=== PATIENT | female | born 1995 | race Caucasian/White ===

== ENCOUNTER 2017-09-16 11:16 | Observation (INO) ==
[2017-09-16 12:11] LABS: Amphetamine Screen,Urine Negative ng/mL (Cutoff=1000); Barbiturate Screen,Urine Negative ng/mL (Cutoff=200); Benzodiazepines Screen,Urine Negative ng/mL (Cutoff=200); Cannabinoid Screen,Urine Negative ng/mL (Cutoff = 50); Cocaine Screen,Urine Negative ng/mL (Cutoff= 300); Opiate Screen,Urine Negative ng/mL (Cutoff=300); Phencyclidine Screen,Urine Negative ng/mL (Cutoff=25)
[2017-09-16 12:27] LABS: Alanine Aminotransferase 11 Units/L (7-52); Aspartate Amino Transferase 11 Units/L (13-39); BUN/Creatinine Ratio 9 (6-26); Blood Urea Nitrogen 5 mg/dL (6-20); Lactate Dehydrogenase 114 Units/L (140-271); Uric Acid 4.5 mg/dL (2.3-7.6); eGFR For African Americans > 60 (> 60); eGFR For Non-African Americans > 60 (> 60)
[2017-09-16 12:35] LABS: Basophils % 0.2 %; Creatinine,Urine 154 mg/dL; Eosinophils # 0.2 K/mcL (0.0-0.6); Eosinophils % 1.2 %; Hematocrit 33.4 % (35.3-44.9); Immature Granulocytes % 0.4 % (0-4); Lymphocytes # 2.5 K/mcL (0.6-4.6); Lymphocytes % 18.2 %; Mean Corpuscular HGB Conc 32.9 g/dL (31.6-35.5); Mean Corpuscular Hemoglobin 27.4 pg (28.0-33.3); Mean Corpuscular Volume 83.1 fL (83.0-100.0); Mean Platelet Volume 11.2 fL (9.4-12.4); Monocytes # 0.7 K/mcL (0.0-1.3); Monocytes % 5.2 %; Neutrophils # 10.2 K/mcL (1.6-8.9); Platelet Count 254 K/mcL (140-400); Protein/Creatinine Ratio,Urine 0.12 mg/mg (0.00-0.20); Red Blood Count 4.02 M/mcL (3.82-4.97); Red Cell Distribution Width 13.7 % (11.5-14.5); Segmented Neutrophils % 74.8 %
--- NOTE | 2017-09-16 12:52 | OB/GYN Progress Note ---
Date of Encounter: 09/16/17 Time of Encounter: 12:46 - Assessment and Plan (1) 32 weeks gestation of Current Visit: Yes Status: Acute Serial blood pressures - normal PIH labs - normal NST - reactive Discharge home with pre-eclampsia and PTL precautions Follow up in the office with Dr Pitts as scheduled for routine care and PRN (2) NST (non-stress test) reactive Current Visit: Yes Status: Acute Reactive NST - Category I tracing, baseline 130 Subjective - Subjective Principal diagnosis: PIH evaluation Interval history: Ms Capellan is a at 32 weeks gestation that arrives to triage from the office with c/o increased blood pressure in the office (140-160/100's). She states she climbed the stairs prior to her appointment. She denies headache, vision changes, epigastric pain, vaginal bleeding/leaking of fluid, vaginal discharge, cramping, and contractions. Antepartum ROS: movement normal, no loss of fluid, no vaginal bleeding, no contractions Objective - Vital Signs Vital Signs: Intake and Output 09/15/17 09/16/17 09/16/17 23:59 07:59 15:59 Other: Weight 105.9 kg Patient Weight 09/16/17 23:59 Weight 105.9 kg - Exam FHR: auscultation normal, category 1 FHR comments: Baseline 130, category I Auscultation: bilateral: normal Abdomen: Present: normal appearance, soft, gravid Uterus: Present: normal. Absent: firm, tenderness - Labs Labs: Abnormal lab results WBC 13.6 K/mcL (4.3-11.1) H 09/16/17 11:57 Hgb 11.0 g/dL (11.5-15.4) L 09/16/17 11:57 Hct 33.4 % (35.3-44.9) L 09/16/17 11:57 MCH 27.4 pg (28.0-33.3) L 09/16/17 11:57 Neutrophils # 10.2 K/mcL (1.6-8.9) H 09/16/17 11:57 BUN 5 mg/dL (6-20) L 09/16/17 11:57 Creatinine 0.57 mg/dL (0.60-1.20) L 09/16/17 11:57 AST 11 Units/L (13-39) L 09/16/17 11:57 Lactate Dehydrogenase 114 Units/L (140-271) L 09/16/17 11:57 Urine Total Protein 19 mg/dL (1-14) H 09/16/17 11:57
== END 2017-09-16 12:56 | disposition home or self-care (01) ==
LOC: 1NENULAB → MERGE 11:16
PROVIDERS: ADMIT Obstetrics & Gynecology; ATTEND Obstetrics & Gynecology

== ENCOUNTER 2017-11-03 23:19 | Observation (INO) ==
[2017-11-04 00:07] LABS: Amphetamine Screen,Urine Negative ng/mL (Cutoff=1000); Barbiturate Screen,Urine Negative ng/mL (Cutoff=200); Benzodiazepines Screen,Urine Negative ng/mL (Cutoff=200); Cannabinoid Screen,Urine Negative ng/mL (Cutoff = 50); Cocaine Screen,Urine Negative ng/mL (Cutoff= 300); Opiate Screen,Urine Negative ng/mL (Cutoff=300); Phencyclidine Screen,Urine Negative ng/mL (Cutoff=25)
[2017-11-04 00:32] LABS: Bilirubin,Urine Negative (Negative); Blood,Urine Negative (Negative); Color,Urine Yellow (Yellow); Glucose,Urine (UA) Normal (Normal); Ketones,Urine Negative (Negative); Leukocyte Esterase,Urine Small (Negative); Nitrite,Urine Negative (Negative); Protein,Urine Negative (Neg-Trace); Specific Gravity,Urine 1.023 (1.010-1.025); Urobilinogen,Urine Normal (Normal)
[2017-11-04 00:33] LABS: Bacteria,Urine None Seen per hpf (None-Few); Hyaline Casts,Urine Few per lpf (None-Few); Squamous Epithelial Cell,Urine Many per lpf (None-Few)
[2017-11-04 00:34] LABS: Clarity,Urine Slightly Hazy (Clear)
[2017-11-04 00:51] LABS: Mucus,Urine Many (Few)
[2017-11-04 00:53] LABS: Renal Epithelial Cells,Urine Few per hpf (None-Few); Transitional Epi Cells,Urine Few per hpf (None-Few)
--- NOTE | 2017-11-04 07:03 | Discharge Summary ---
Date of Encounter: 11/04/17 Time of Encounter: 00:42 - Discharge Diagnosis (1) 39 weeks gestation of Priority: Primary Status: Acute Comments: admitted for labor observation false labor (2) NST (non-stress test) reactive Priority: Secondary Status: Acute Comments: 125 bpm moderate variability +15x15 accels no decels noted. Cat. 1 tracing. Irregular contractions - Discharge Medications Home Medications: Esomeprazole Magnesium [Nexium] 20 mg PO DAILY 09/16/17 [History] Vitamins 1 tab PO DAILY 09/16/17 [History] Allergies/Adverse Reactions: 3 Allergy/AdvReac Type Severity Reaction Status Date / Time No Known Allergies Allergy Verified 11/03/17 23:30 Data Procedures and tests throughout hospitalization: Laboratory Tests 11/03/17 11/04/17 23:33 00:22 Urine Color Yellow Urine Clarity Slightly Hazy Urine pH 7.0 Ur Specific [place] 1.023 Urine Protein Negative Urine Glucose (UA) Normal Urine Ketones Negative Urine Blood Negative Urine Nitrite Negative Urine Bilirubin Negative Urine Urobilinogen Normal Ur Leukocyte Esterase Small H Urine Microscopic RBC 5-15 H Urine Microscopic WBC 5-15 H Ur Squamous Epith Cells Many H Ur Transition Epith Cell Few Ur Renal Epithelial Cell Few Urine Bacteria None Seen Hyaline Casts Few Urine Mucus Many H Ur Culture Indicated? NO. A Urine Opiates Screen Negative Ur Barbiturates Screen Negative Ur Phencyclidine Scrn Negative Ur Amphetamines Screen Negative U Benzodiazepines Scrn Negative Urine Cocaine Screen Negative U Marijuana (THC) Screen Negative Labs on day of discharge: Labs from last 24 hours 11/04/17 11/03/17 00:22 23:33 Urine Color Yellow Urine Clarity Slightly Hazy Urine pH 7.0 Ur Specific [place] 1.023 Urine Protein Negative Urine Glucose (UA) Normal Urine Ketones Negative Urine Blood Negative Urine Nitrite Negative Urine Bilirubin Negative Urine Urobilinogen Normal Ur Leukocyte Esterase Small H Urine Microscopic RBC 5-15 H Urine Microscopic WBC 5-15 H Ur Squamous Epith Cells Many H Ur Transition Epith Cell Few Ur Renal Epithelial Cell Few Urine Bacteria None Seen Hyaline Casts Few Urine Mucus Many H Ur Culture Indicated? NO. A Urine Opiates Screen Negative Ur Barbiturates Screen Negative Ur Phencyclidine Scrn Negative Ur Amphetamines Screen Negative U Benzodiazepines Scrn Negative Urine Cocaine Screen Negative U Marijuana (THC) Screen Negative Date of admission: 11/03/17 23:19 Primary care physician: PCP NONE Discharging clinician: Chloe Camp Anticipated date of discharge: 11/04/17 - Patient Status Disposition: Home, Self-Care Condition: Good - Discharge Instructions Follow Up With: NONE,PCP [Primary Care Provider] - Additional Instructions: LABOR AND DELIVERY DISCHARGE INSTRUCTIONS Signs and Symptoms to be Reported to your Doctor Immediately: * Sudden gush, continuous or intermittent lead of fluid from vagina (note the time of gush and color of fluid) * Onset of bright red vaginal bleeding with or without pain (if you had a vaginal exam during this visit you may notice some dark red spotting. This is normal.) * Contractions that are 5 minutes apart (from the beginning of one contraction to the beginning of the next) and last 45-60 seonds; contractions that you can no longer walk, talk or laugh through. * A change in the baby's activity. This could be an increase or decrease in activity. * Severe headache which does not go away with tylenol. * Sudden swelling in the face, hands, arms and/or legs. * Upper abdominal pain - sometimes associated with heartburn or nausea and is not relieved by Maalox, Mylanta or Tums. * Kick Counts __ One hour after a meal, lay down on one side in a quiet place. Count the number of time the baby moves during an hour. If less than 6 movements, notify your physician Diet: *Force fluids, 8 to 10 tall glasses of fluid per day - may include popsicles and jello *Limit caffeine - this includes chocolate, coffee, tea, any soft drink containing such as all samuel, Mike Yellow and Mountain Dew LABOR AND DELIVERY DISCHARGE INSTRUCTIONS Signs and Symptoms to be Reported to your Doctor Immediately: * Sudden gush, continuous or intermittent lead of fluid from vagina (note the time of gush and color of fluid) * Onset of bright red vaginal bleeding with or without pain (if you had a vaginal exam during this visit you may notice some dark red spotting. This is normal.) * Contractions that are 5 minutes apart (from the beginning of one contraction to the beginning of the next) and last 45-60 seonds; contractions that you can no longer walk, talk or laugh through. * A change in the baby's activity. This could be an increase or decrease in activity. * Severe headache which does not go away with tylenol. * Sudden swelling in the face, hands, arms and/or legs. * Upper abdominal pain - sometimes associated with heartburn or nausea and is not relieved by Maalox, Mylanta or Tums. * Kick Counts __ One hour after a meal, lay down on one side in a quiet place. Count the number of time the baby moves during an hour. If less than 6 movements, notify your physician Diet: *Force fluids, 8 to 10 tall glasses of fluid per day - may include popsicles and jello *Limit caffeine - this includes chocolate, coffee, tea, any soft drink containing such as all samuel, Mike Yellow and Mountain Dew - Diet and Activity Activity: increase activity as tolerated Hospital Course [employer] Hospital course: Patient is a 22 y/o that presents to labor and delivery for labor evaluation. Patient reports contractions, denies LOF or VB. SVE on admission was 3/80%. No cervical change after evaluation. Patient reports +FM. Time Attestation: Total time spent providing and/or coordinating discharge services: Time Spent: Less than 30 minutes Exam - Constitutional General appearance IM: A&O X 3, pleasant, answers questions appropriately - Neurological Exam Neurological exam: alert, oriented X3, reflexes normal - Other Additional findings: assessed by RN
== END 2017-11-04 00:54 | disposition home or self-care (01) ==
LOC: 1NENULAB → MERGE 23:19
PROVIDERS: ADMIT Student in an Organized Health Care Education/Training Program; ATTEND Student in an Organized Health Care Education/Training Program

== ENCOUNTER 2017-11-06 08:00 | Inpatient (IN) ==
[2017-11-06] MEDS ORDERED: Famotidine 20 MG/2 ML VIAL IVP PRN (08:46)
[2017-11-06] MEDS ORDERED: Naloxone 0.4 MG/ML INJ IVP PRN (08:46)
[2017-11-06] MEDS ORDERED: Metoclopramide 10 MG/2 ML VIAL IVP PRN (08:46)
[2017-11-06] MEDS ORDERED: Ondansetron 4 MG/2 ML VIAL IVP PRN (08:46)
[2017-11-06] MEDS ORDERED: *HR* Nalbuphine 10 MG/ML AMPUL IVP PRN (08:46)
[2017-11-06] MEDS ORDERED: Ringers Solution, Lactated 1,000 ML IVC SCH (09:00)
--- NOTE | 2017-11-06 09:16 | Anesthesia Evaluation PreOp ---
Date of Encounter: 11/06/17 Time of Encounter: 09:14 - Past History Planned Operation: baljinder Cardiac History: Denies any Significant Hx Pulmonary History: Denies Any Significant HX DIRECTOR OF RECRUITMENT AND ADMISSIONS History: Denies Any Significant HX Other Medical History: GERD Anesthesia History: No Prior Anesthetic Complications, Past Anesthesia : Yes (g1, 39 weeks) Alcohol Use: none Drug use: none Medications and Allergies Esomeprazole Magnesium [Nexium] 20 mg PO DAILY 09/16/17 [History] Vitamins 1 tab PO DAILY 09/16/17 [History] 3 Allergy/AdvReac Type Severity Reaction Status Date / Time No Known Allergies Allergy Verified 11/03/17 23:30 - Meds/Allergy Pre-op Review Medications Reviewed: Yes Allergies Reviewed: Yes Beta Blockers on Current Med List: No Anesthesia Exam Height: 68 Weight: 245 - HEENT Pupil (Motor): Pupils equal Mallampati: II - DIRECTOR OF RECRUITMENT AND ADMISSIONS LOC: Oriented DIRECTOR OF RECRUITMENT AND ADMISSIONS Motor: Normal RUE, Normal LUE, Normal RLE, Normal LLE, Normal Face DIRECTOR OF RECRUITMENT AND ADMISSIONS Sensory: Normal: RUE, LUE, RLE, LLE, Face - Cardiac Rhythm: Regular Murmur: None JVD: No Carotid Bruit: No - Pulmonary Breath Sounds: bilateral Clear Respiratory Effort: Symmetrical Anesthesia Assess/Plan ASA Score: 2 Modified [place] Scale for Level of Consciousness: Cooperative, oriented, and tranquil Anesthetic Plan: Regional
[2017-11-06 09:19] LABS: Basophils % 0.1 %; Eosinophils # 0.1 K/mcL (0.0-0.6); Eosinophils % 0.8 %; Hematocrit 32.6 % (35.3-44.9); Hemoglobin 10.7 g/dL (11.5-15.4); Immature Granulocytes % 0.5 % (0-4); Lymphocytes % 19.3 %; Mean Corpuscular HGB Conc 32.8 g/dL (31.6-35.5); Mean Corpuscular Hemoglobin 27.3 pg (28.0-33.3); Mean Corpuscular Volume 83.2 fL (83.0-100.0); Mean Platelet Volume 11.8 fL (9.4-12.4); Monocytes # 0.6 K/mcL (0.0-1.3); Monocytes % 5.9 %; Neutrophils # 7.6 K/mcL (1.6-8.9); Platelet Count 209 K/mcL (140-400); Red Blood Count 3.92 M/mcL (3.82-4.97); Red Cell Distribution Width 14.5 % (11.5-14.5); Segmented Neutrophils % 73.4 %
[2017-11-06] MEDS ORDERED: miSOPROStol 100 MCG TABLET PO STA (10:19)
[2017-11-06] MEDS ORDERED: Azithromycin 250 MG TABLET PO ONE (10:52)
--- NOTE | 2017-11-06 12:15 | OB/GYN Progress Note ---
Date of Encounter: 11/06/17 Time of Encounter: 12:02 - Assessment and Plan (1) Chlamydia infection affecting in third trimester Current Visit: Yes Status: Acute 1000 mg azithromycin given orally 1 dose (2) 39 weeks gestation of Current Visit: Yes Status: Acute Consult with Dr. Blevins Antibiotics given for infection Induction rescheduled for 11/14/17 (3) NST (non-stress test) reactive Current Visit: Yes Status: Acute FHR category I Subjective - Subjective Principal diagnosis: Chlamydia during Interval history: Ms. Lo is a at 39 weeks 3 days GA with an EDB of 11/11/17 reported this morning for scheduled IOL. She reports she is feeling generally well and has +FM , denies ctx, lof, vb. It was discovered on arrival that she had a positive chlamydia result from April 2017 that was untreated. The patient states that she was unaware of this result and was never given antibiotics for treatment. She denies any abnormal vaginal discharge. Antepartum ROS: movement normal, no loss of fluid, no vaginal bleeding, no contractions Objective - Vital Signs Vital Signs: Intake and Output 11/05/17 11/06/17 11/06/17 23:59 07:59 15:59 Other: Weight 111.5 kg Patient Weight 11/06/17 23:59 Weight 111.5 kg - Exam FHR: category 1 FHR comments: Baseline 135 Moderate variability Accelerations present 15 x 15 Decelerations absent heart rate category I No activity on toco Auscultation: bilateral: normal Abdomen: Present: normal appearance, soft, gravid Uterus: Present: normal, firm Cervical dilation: 2 Cervix effacement: 80 station: -4 - Labs Labs: Abnormal lab results Hgb 10.7 g/dL (11.5-15.4) L 11/06/17 09:01 Hct 32.6 % (35.3-44.9) L 11/06/17 09:01 MCH 27.3 pg (28.0-33.3) L 11/06/17 09:01
[2017-11-06 12:22] LABS: Amphetamine Screen,Urine Negative ng/mL (Cutoff=1000); Barbiturate Screen,Urine Negative ng/mL (Cutoff=200); Benzodiazepines Screen,Urine Negative ng/mL (Cutoff=200); Cannabinoid Screen,Urine Negative ng/mL (Cutoff = 50); Cocaine Screen,Urine Negative ng/mL (Cutoff= 300); Opiate Screen,Urine Negative ng/mL (Cutoff=300); Phencyclidine Screen,Urine Negative ng/mL (Cutoff=25)
== END 2017-11-06 12:17 | disposition home or self-care (01) | DRG 781 ==
LOC: 1NENULAB 08:09 → MERGE 08:09
PROVIDERS: ADMIT Obstetrics & Gynecology; ATTEND Obstetrics & Gynecology

== ENCOUNTER 2017-11-14 08:00 | Inpatient (IN) ==
[2017-11-14] MEDS ORDERED: Metoclopramide 10 MG/2 ML VIAL IVP PRN (08:33)
[2017-11-14] MEDS ORDERED: Ondansetron 4 MG/2 ML VIAL IVP PRN (08:33)
[2017-11-14] MEDS ORDERED: Naloxone 0.4 MG/ML INJ IVP PRN (08:33)
[2017-11-14] MEDS ORDERED: *HR* Nalbuphine 10 MG/ML AMPUL IVP PRN (08:33)
[2017-11-14] MEDS ORDERED: Famotidine 20 MG/2 ML VIAL IVP PRN (08:33)
[2017-11-14] MEDS ORDERED: Ringers Solution, Lactated 1,000 ML IVC SCH (08:45)
[2017-11-14 09:15] LABS: Basophils % 0.2 %; Eosinophils # 0.1 K/mcL (0.0-0.6); Eosinophils % 0.9 %; Hematocrit 34.1 % (35.3-44.9); Hemoglobin 11.1 g/dL (11.5-15.4); Immature Granulocytes % 0.4 % (0-4); Lymphocytes # 2.5 K/mcL (0.6-4.6); Lymphocytes % 18.8 %; Mean Corpuscular HGB Conc 32.6 g/dL (31.6-35.5); Monocytes # 0.7 K/mcL (0.0-1.3); Monocytes % 5.5 %; Neutrophils # 9.9 K/mcL (1.6-8.9); Platelet Count 203 K/mcL (140-400); Red Blood Count 4.11 M/mcL (3.82-4.97); Red Cell Distribution Width 14.7 % (11.5-14.5); Segmented Neutrophils % 74.2 %
[2017-11-14 09:48] LABS: Amphetamine Screen,Urine Negative ng/mL (Cutoff=1000); Barbiturate Screen,Urine Negative ng/mL (Cutoff=200); Benzodiazepines Screen,Urine Negative ng/mL (Cutoff=200); Cannabinoid Screen,Urine Negative ng/mL (Cutoff = 50); Cocaine Screen,Urine Negative ng/mL (Cutoff= 300); Opiate Screen,Urine Negative ng/mL (Cutoff=300); Phencyclidine Screen,Urine Negative ng/mL (Cutoff=25)
[2017-11-14] MEDS ORDERED: miSOPROStol 100 MCG TABLET PO STA (10:44)
[2017-11-14] MEDS ORDERED: Epidural Premix (fent/bupiv) 110 ML EP SCH (12:00)
[2017-11-14] MEDS ORDERED: Epidural Premix (fent/bupiv) 110 ML EP ONE ×2 (12:07→20:12)
--- NOTE | 2017-11-14 12:11 | OB/GYN History & Physical ---
Date of Encounter: 11/14/17 Time of Encounter: 12:06 Assessment and Plan (1) 40 weeks gestation of Current visit: Yes Status: Acute Admit to labor and delivery Oral Cytotec with Mcdermott bulb Intermittent monitoring Labs-CBC Pain management plan is epidural Anticipate Dr. 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 (2) Chlamydia infection affecting in third trimester Current visit: Yes Status: Acute History of Present Illness Chief complaint: iol HPI: Ms. Capellan is a 22 year old female with an estimated date of of 11/10/17 at 40 weeks 4 days gestation dated by early ultrasound. She presents for term induction of labor. She denies contractions, follow-up, vaginal bleeding and reports positive movement. Her course has been uncomplicated. She received care from the midwives and Dr. Pitts. records are available in her chart and have been reviewed. Labs: A+ G GBS negative Hep B negative HIV negative T. Palladium negative Gonorrhea negative Chlamydia positive - first noticed 1 week ago. Patient was treated with antibiotics. Varicella immune Rubella immune Past Med Surg Social Fam HX - Past Medical History Medical history: no medical history, other Psychiatric history: anxiety - Past Surgical History Surgical History: other - Social History Smoking Status: Never smoker Smokeless Tobacco Status: No Alcohol use: none Drug use: none - Family History Father Adopted: No Family Member Ethnicity: Non- Living Status: Still Living Hx Family Cancer: Yes (skin cancer) Hx Family Genitourinary Disorders: Yes (Pyloric stenosis) Obstetrical History - Pregnancies : 1 Para: 0 Term: 0 : 0 Ab's: 0 Livin Medications and Allergies Esomeprazole Magnesium [Nexium] 20 mg PO DAILY 09/16/17 [History] Vitamins 1 tab PO DAILY 09/16/17 [History] 3 Allergy/AdvReac Type Severity Reaction Status Date / Time No Known Allergies Allergy Verified 11/03/17 23:30 Review of System OB All systems PM: reviewed and no additional remarkable complaints except as stated Exam - Constitutional Constitutional: well developed, well nourished, no acute distress, average body habitus - HEENT HEENT: Normocephaly, Mucus Membranes Moist - Neck Neck exam: full ROM - Lungs Respiratory exam: CTAB - Cardiovascular Cardiovascular exam: RRR, +S1, +S2 - Breasts Breast: bilateral: normal - Abdomen Abdomen: Present: bowel sounds normal, gravid, non tender - Extremities Extremities exam: normal inspection, radial pulses palpable and symmetrical - Vulva Vulva: bilateral: normal - Vagina Vagina: Present: normal moisture - Cervix Dilation: 3 Effacement: 50 Station: -3 - Uterus Uterus exam: Present: normal size, normal contour - Adnexa Adnexa: bilateral: normal - Anus/Rectum Anus/Rectum: Present: normal perianal skin Results Result Diagrams: 11/14/17 08:35 Abnormal lab results WBC 13.4 K/mcL (4.3-11.1) H 11/14/17 08:35 Hgb 11.1 g/dL (11.5-15.4) L 11/14/17 08:35 Hct 34.1 % (35.3-44.9) L 11/14/17 08:35 MCH 27.0 pg (28.0-33.3) L 11/14/17 08:35 RDW 14.7 % (11.5-14.5) H 11/14/17 08:35 Neutrophils # 9.9 K/mcL (1.6-8.9) H 11/14/17 08:35 All other labs normal. - VTE Reasons for not Prescribing Prophylaxis: Treatment not Indicated - Low risk for VTE
--- NOTE | 2017-11-14 12:21 | OB Labor Progress Note ---
Date of Encounter: 11/14/17 Time of Encounter: 12:19 Labor Progress Note - Subjective Subjective: Patient reports she has not yet feeling contractions. - Cervix Cervix: 3/80/-2 - Heart Tones Heart Tones: Baseline 130 Moderate variability Accelerations present 15 x 15 No decelerations FHR category I - [place]: Contractions every 2-4 minutes and palpate mild - Interventions Interventions: SVE Mcdermott bulb placed - Plan Plan: Continue observation of labor Epidural as needed Anticipate
--- NOTE | 2017-11-14 12:24 | OB Labor Progress Note ---
Date of Encounter: 11/14/17 Time of Encounter: 12:22 Labor Progress Note - Subjective Subjective: Patient continues to reports she is not feeling contractions. - Cervix Cervix: 5/80/-2 - Heart Tones Heart Tones: Baseline 135 Moderate variability Accelerations present 15 x 15 3 minute prolonged deceleration with FHR in the 60s preceded by 2 minutes of deep variable decelerations FHR category II - [place]: Contractions every 2-4 minutes and palpate mild - Interventions Interventions: Dr. Pitts called to bedside AROM with IUPC and FSE placed - small amount of clear fluid - Plan Plan: Continue management Epidural placement recommended Anticipate Dr. Pitts is aware of POC and agrees
[2017-11-14] MEDS ORDERED: 0.9 % Sodium Chloride 1,000 ML ONE (14:04)
--- NOTE | 2017-11-14 14:34 | OB Labor Progress Note ---
Date of Encounter: 11/14/17 Time of Encounter: 14:30 Labor Progress Note - Subjective Subjective: Patient resting comfortably with epidural. - Cervix Cervix: 6/80/-1 - Heart Tones Heart Tones: Baseline 135 Moderate variability Accelerations present 15 x 15 Single 6 minute prolonged deceleration FHR category II - [place]: Contractions every 2-4 minutes and palpate moderate - Interventions Interventions: SVE Dr. Pitts to bedside - discussion regarding potential for section was had with patient and partner. At this time, they would like to proceed with vaginal delivery - Plan Plan: Continue management Frequent position changes with peanut ball Anticipate Dr. Pitts aware of plan of care and agrees
--- NOTE | 2017-11-14 17:05 | OB Labor Progress Note ---
Date of Encounter: 11/14/17 Time of Encounter: 17:02 Labor Progress Note - Subjective Subjective: Pt resting comfortably with epidural. - Cervix Cervix: 7/100/0 - Heart Tones Heart Tones: Baseline 130 Moderate variability Accelerations present 15x15 No decelerations FHR Category I - [place]: Contractions every 2-4 and palpate moderate - Interventions Interventions: SVE - Plan Plan: Continue expectant management Continue position changes Anticipate
--- NOTE | 2017-11-14 17:54 | OB Labor Progress Note ---
Date of Encounter: 11/14/17 Time of Encounter: 17:43 Labor Progress Note - Subjective Subjective: Pt resting comfortably with epidural. - Cervix Cervix: 8/100/0-+1 - Heart Tones Heart Tones: Baseline 130 Moderate variability Accelerations present 15x15 Short deceleration ~2 minutes with cooper to 70 FHR Category II - [place]: Contractions present 2-4 minutes and palpate moderate - Interventions Interventions: SVE IUPC - Plan Plan: Continue expectant management Continue peanut ball rotation Anticipate
[2017-11-14] MEDS ORDERED: Oxytocin 20 units/ LR 1000 mL 20 UNIT/1,000 ML BAG IVC ONE (19:22)
--- NOTE | 2017-11-14 22:55 | Anesthesia Evaluation PreOp ---
Date of Encounter: 11/14/17 Time of Encounter: 12:00 - Past History Planned Operation: baljinder Cardiac History: Denies any Significant Hx Pulmonary History: Denies Any Significant HX [employer]ING History: Denies Any Significant HX Other Medical History: Denies Any Significant HX : Yes Test: Positive Alcohol Use: none Drug use: none Medications and Allergies Esomeprazole Magnesium [Nexium] 20 mg PO DAILY 09/16/17 [History] Vitamins 1 tab PO DAILY 09/16/17 [History] 3 Allergy/AdvReac Type Severity Reaction Status Date / Time No Known Allergies Allergy Verified 11/03/17 23:30 - Meds/Allergy Pre-op Review Medications Reviewed: Yes Allergies Reviewed: Yes Beta Blockers on Current Med List: No Anesthesia Results - Labs 11/14/17 08:35 Anesthesia Exam Height: 68.5 Weight: 111kg NPO (# of Hours): mn Pain Scale: 8 - HEENT Pupil (Motor): Pupils equal Mallampati: II Teeth: Normal Oral Opening: Greater than 3 - [employer]ING LOC: Oriented [employer]ING Motor: Normal RUE, Normal LUE, Normal RLE, Normal LLE, Normal Face [employer] Sensory: Normal: RUE, LUE, RLE, LLE, Face - Cardiac Rhythm: Regular Murmur: None JVD: No Carotid Bruit: No - Pulmonary Breath Sounds: bilateral Clear Respiratory Effort: Symmetrical Anesthesia Assess/Plan ASA Score: 1 Modified [place] Scale for Level of Consciousness: Cooperative, oriented, and tranquil Anesthetic Plan: Regional Autologous Blood: No Monitoring Plan: Standard Monitors
--- NOTE | 2017-11-14 22:57 | Anesthesia Procedures ---
Date of Encounter: 11/14/17 Time of Encounter: 12:00 Procedures: Anesthesia - Epidural/Spinal Patient ID/Chart reviewed: Yes Patient examined: Yes OB Eval: Gestational age: 40.4 OB Eval: : 1 OB Eval: Hx Para: 0 OB Eval: Dilated at (cm): 5 OB Eval: Contractions: Non-stressed pattern Consent Obtained: Yes Supplemental Oxygen: None/Room Air Site Prep: Aseptic Technique, Sterile prep and drape, Povidone-Iodine 1% Patient position: upright Local Anesthetic: Lidocaine 1% Amount of Local Anesthetic used: 3 Touhy Needle Gauge: 18 Touhy Needle Depth (cm): 6 Catheter Depth at Skin (cm): 12 Test Dose (1.5% Lido + Epi): Volume given (mls): 3 Test Dose Result: Negative Loading Dose Administered: Thru Catheter Infusion Rate (mls/hr): [address]: Tegaderm, Tape Interspace Used: L4-L5 Loss of Resistance (HUSAM): Yes Blood: No CSF: No Paresthesia: No Vitals + FHT's: stable throughout see nursing notes
--- NOTE | 2017-11-15 00:21 | OB Labor Progress Note ---
Date of Encounter: 11/15/17 Time of Encounter: 00:19 Labor Progress Note - Subjective Subjective: Patient comfortable with epidural - Cervix Cervix: 10/100/-2 - Heart Tones Heart Tones: Baseline 150 Moderate variability Accelerations present 15 x 15 Frequency variable and late decelerations FHR category II - [place]: Contractions every 2-3 minutes - Interventions Interventions: We have been pushing for the last 2 hours with very little progress. Labor down for an hour and reassess - Plan Plan: Continue induction management Increase epidural as needed Anticipate Dr. Pitts aware plan of care and agrees
[2017-11-15] MEDS ORDERED: CeFAZolin Syr 3,000MG/30 ML 3,000 MG/30 ML SYRINGE IVPB ONE (01:26)
--- NOTE | 2017-11-15 03:22 | OB/GYN Procedure Note ---
Delivery - Delivery Date: 11/15/17 Provider: Lavonne Rogers (Dr. Pitts in attendance) Intrapartum events: prolonged 2nd stage>2.5hr Delivery induction: aguillon, misoprostol Delivery augmentation: rupture of membranes, pitocin Delivery monitor: external FHT, external uterine, internal FHT, internal uterine Anesthesia: local, epidural Estimated Blood Loss: 300 - Infant (s) Infant A Delivery Date: 11/15/17 Delivery Time: 02:59 Presentation: vertex Position: JACKELINE Route of delivery: vacuum extraction Gender: Male Viability: Viable Pounds: 9 Ounces: 0 Weight Gram: 4.09 kg at 1 minute: 8 at 5 mins: 9 Shoulder Dystocia: not encountered Specimens collected: cord blood Placenta: spontaneous Cord: 3 umbilical vessels - Repair Episiotomy: none Laceration Description: Perineal - 2nd Degree - Complications Delivery complications: none - Disposition Mom disposition: stable in LDR disposition: stable in LDR - Comments Comments: Patient had progressed to complete and on the perineum. Patient began having variable decelerations. Discussed with patient and family need for delivery due to the variable decelerations and prolonged second stage. Explained to the patient and her the necessity of double set up with the intent to deliver the infant baby vaginally with the possibility of converting to a C- section. Risk and benefits of each were discussed. Patient taken to the operating room. She is placed in dorsal lithotomy position and prepped and draped in usual manner. After appropriate timeout and consent had been obtained, Aguillon catheter was inserted. The vacuum was placed on the occiput at +1 station and there was gradual descent with 7 pulls of the vacuum lasting approximately 40 seconds each. Vacuum pressure was released between contractions. No pop offs were appreciated. Once the occiput was at + 3 station. I discontinued the vacuum assisted delivery. heart tones were stable at 120-140. She progressed to deliver a live male over a second- degree laceration weighing 9 pounds 4090 g with Apgars of 8 and 9. Placenta delivered spontaneously intact. Second-degree laceration was reapproximated with a 2-0 Vicryl and 3-0 Monocryl. Estimated blood loss was 300 mL. Mother, father, and baby were bonding in delivery room.
[2017-11-15] MEDS ORDERED: Oxytocin 20 units/ LR 1000 mL 20 UNIT/1,000 ML BAG IVC ONE (05:51)
[2017-11-15] MEDS ORDERED: Oxytocin 20 units/ LR 1000 mL 20 UNIT/1,000 ML BAG IVC SCH (06:36)
[2017-11-15] MEDS ORDERED: Acetaminophen 325 MG TABLET PO PRN (06:36)
[2017-11-15] MEDS: Prenatal Vit/FA 1 EACH TABLET PO SCH (08:38)
[2017-11-15] MEDS ORDERED: Benzocaine/Menthol 56 GM AEROSOL SPRAY TP PRN (20:54)
[2017-11-15] MEDS ORDERED: Benzocaine/Menthol 56 GM AEROSOL SPRAY TP ONE (21:00)
[2017-11-15] MEDS: Ibuprofen 600 MG TABLET PO PRN (21:01)
[2017-11-16 00:43] LABS: Basophils % 0.2 %; Eosinophils # 0.2 K/mcL (0.0-0.6); Eosinophils % 1.6 %; Hematocrit 30.9 % (35.3-44.9); Immature Granulocytes % 0.5 % (0-4); Lymphocytes # 2.8 K/mcL (0.6-4.6); Lymphocytes % 19.2 %; Mean Corpuscular HGB Conc 32.4 g/dL (31.6-35.5); Mean Corpuscular Volume 83.5 fL (83.0-100.0); Mean Platelet Volume 11.7 fL (9.4-12.4); Monocytes # 0.9 K/mcL (0.0-1.3); Monocytes % 6.3 %; Neutrophils # 10.6 K/mcL (1.6-8.9); Platelet Count 199 K/mcL (140-400); Segmented Neutrophils % 72.2 %
[2017-11-16] MEDS: Ibuprofen 600 MG TABLET PO PRN (03:56)
[2017-11-16 08:15] VITALS: BP 125/80
[2017-11-16] MEDS: Prenatal Vit/FA 1 EACH TABLET PO SCH (10:03)
--- NOTE | 2017-11-16 10:33 | Discharge Summary ---
Date of Encounter: 11/16/17 Time of Encounter: 10:26 - Discharge Diagnosis (1) Vaginal delivery Priority: Primary Status: Acute Comments: Pt states feels well, pain well managed on po pain medication, tolerates diet, bleeding minimal, breast and bottle feeding - Discharge Medications Prescriptions: Ibuprofen [Motrin] 600 mg PO Q6HR PRN #60 tablet PRN Reason: Cramping Docusate [Colace] 100 mg PO BID #60 capsule Ferrous Sulfate 325 mg PO DAILY #60 tablet Home Medications: Esomeprazole Magnesium [Nexium] 20 mg PO DAILY 09/16/17 [History] Vitamins 1 tab PO DAILY 09/16/17 [History] Acetaminophen [Tylenol] 650 mg PO Q6HR PRN tablet 11/16/17 [Rx] Benzocaine/Menthol [place] [Dermoplast [place]] 1 appl TP QID PRN aerosol 11/16/17 [Rx] Docusate [Colace] 100 mg PO BID #60 capsule 11/16/17 [Rx] Ferrous Sulfate 325 mg PO DAILY #60 tablet 11/16/17 [Rx] Ibuprofen [Motrin] 600 mg PO Q6HR PRN #60 tablet 11/16/17 [Rx] Vit/FA 1 each PO DAILY tablet 11/16/17 [Rx] Allergies/Adverse Reactions: 3 Allergy/AdvReac Type Severity Reaction Status Date / Time No Known Allergies Allergy Verified 11/03/17 23:30 Data Procedures and tests throughout hospitalization: Laboratory Tests 11/14/17 11/14/17 11/16/17 08:33 08:35 00:32 WBC 13.4 H 14.7 H RBC 4.11 3.70 L Hgb 11.1 L 10.0 L Hct 34.1 L 30.9 L MCV 83.0 83.5 MCH 27.0 L 27.0 L MCHC 32.6 32.4 RDW 14.7 H 15.0 H Plt Count 203 199 MPV 12.0 11.7 Immature Gran % 0.4 0.5 Seg Neutrophils % 74.2 72.2 Lymphocytes % 18.8 19.2 Monocytes % 5.5 6.3 Eosinophils % 0.9 1.6 Basophils % 0.2 0.2 Neutrophils # 9.9 H 10.6 H Lymphocytes # 2.5 2.8 Monocytes # 0.7 0.9 Eosinophils # 0.1 0.2 Basophils # 0.0 0.0 Urine Opiates Screen Negative Ur Barbiturates Screen Negative Ur Phencyclidine Scrn Negative Ur Amphetamines Screen Negative U Benzodiazepines Scrn Negative Urine Cocaine Screen Negative U Marijuana (THC) Screen Negative Labs on day of discharge: Labs from last 24 hours 11/16/17 00:32 WBC 14.7 H RBC 3.70 L Hgb 10.0 L Hct 30.9 L MCV 83.5 MCH 27.0 L MCHC 32.4 RDW 15.0 H Plt Count 199 MPV 11.7 Immature Gran % 0.5 Seg Neutrophils % 72.2 Lymphocytes % 19.2 Monocytes % 6.3 Eosinophils % 1.6 Basophils % 0.2 Neutrophils # 10.6 H Lymphocytes # 2.8 Monocytes # 0.9 Eosinophils # 0.2 Basophils # 0.0 Date of admission: 11/14/17 08:06 Primary care physician: Shraddha Heath CNP Consults: 11/15/17 06:36 Consult to Traffic Observer [CONS] Routine Comment: Vaginal delivery, consult needed Discharging clinician: Hafsa Krueger Anticipated date of discharge: 11/16/17 - Patient Status Disposition: Home, Self-Care Condition: Good Functional capacity at discharge: independent ambulation Overall status at discharge: patient is back to baseline - Discharge Instructions Follow Up With: Shraddha Heath CNP [Primary Care Provider] - Isaac Pitts MD [Partnered Physician] - - Diet and Activity Activity: resume usual activities as tolerated Diet: regular diet Hospital Course Reason for admission: induction of labor Delivery: vacuum extraction Episiotomy: none Laceration: 2nd degree Other procedures: none complications: none Discharge diagnosis: IUP at term delivered baby: male Hospital course: elivery - Delivery Date: 11/15/17 Provider: Lavonne Rogers (Dr. Pitts in attendance) Intrapartum events: prolonged 2nd stage>2.5hr Delivery induction: aguillon, misoprostol Delivery augmentation: rupture of membranes, pitocin Delivery monitor: external FHT, external uterine, internal FHT, internal uterine Anesthesia: local, epidural Estimated Blood Loss: 300 - (s) Infant A Delivery Date: 11/15/17 Delivery Time: 02:59 Presentation: vertex Position: JACKELINE Route of delivery: vacuum extraction Gender: Male Viability: Viable Pounds: 9 Ounces: 0 Weight Gram: 4.09 kg at 1 minute: 8 at 5 mins: 9 Shoulder Dystocia: not encountered Specimens collected: cord blood Placenta: spontaneous Cord: 3 umbilical vessels - Repair Episiotomy: none Laceration Description: Perineal - 2nd Degree - Complications Delivery complications: none - Disposition Mom disposition: stable in PP and appropriate for discharge Time Attestation: Total time spent providing and/or coordinating discharge services: Time Spent: Less than 30 minutes Exam - Constitutional Vitals: Temp Pulse Resp BP Pulse Ox 97.6 F 74 16 125/80 98 11/16/17 08:14 11/16/17 08:14 11/16/17 08:14 11/16/17 08:14 11/16/17 08:14 General appearance IM: A&O X 3 - Respiratory Respiratory exam: Present: CTAB - Cardiovascular Cardiovascular exam IM: Present: RRR - GI/Abdominal GI/Abdominal exam IM: normal bowel sounds, soft - Uterine Tone: Firm Uterus Position: 1 Finger Below Umbilicus - Extremities Exam Extremities exam IM: Present: normal capillary refill, normal inspection - Neurological Exam Neurological exam: normal gait, oriented X3 - Psychiatric Additional comments: reports good mood
== END 2017-11-16 11:45 | disposition home or self-care (01) | DRG 774 ==
LOC: 1NENULAB 08:06 → MERGE 08:06 → 1NENUOBS 11-15 07:01
PROVIDERS: ADMIT Obstetrics & Gynecology; ATTEND Obstetrics & Gynecology

== ENCOUNTER → 2020-01-23 05:19 | Observation (INO) | END | disposition home or self-care (01) | LOC: 1NENULAB | PROVIDERS: ADMIT Obstetrics & Gynecology; ATTEND Obstetrics & Gynecology ==

== ENCOUNTER 2020-01-30 | Inpatient (IN) ==
[2020-01-30] MEDS ORDERED: Lidocaine 1% 20 ML MDV INFILT PRN (00:01)
[2020-01-30] MEDS ORDERED: Metoclopramide 10 MG/2 ML VIAL IVP PRN (00:01)
[2020-01-30] MEDS ORDERED: Ondansetron 4 MG/2 ML VIAL IVP PRN (00:01)
[2020-01-30] MEDS ORDERED: Naloxone 0.4 MG/ML INJ IVP PRN (00:01)
[2020-01-30] MEDS ORDERED: Famotidine 20 MG/2 ML VIAL IVP PRN (00:01)
[2020-01-30] MEDS ORDERED: *HR* FentaNYL (PF) 100 MCG/2 ML VIAL IVP PRN (00:01)
[2020-01-30] MEDS ORDERED: Oxytocin 20 units/ LR 1000 mL 20 UNIT/1,000 ML BAG IVC SCH ×2 (00:15→08:33)
[2020-01-30] MEDS ORDERED: Ringers Solution, Lactated 1,000 ML IVC SCH (00:15)
[2020-01-30 00:35] LABS: Basophils % 0.2 %; Eosinophils # 0.1 K/mcL (0.0-0.6); Eosinophils % 0.6 %; Hematocrit 34.7 % (35.3-44.9); Hemoglobin 11.2 g/dL (11.5-15.4); Immature Granulocytes % 0.3 % (0-4); Lymphocytes # 2.7 K/mcL (0.6-4.6); Lymphocytes % 23.1 %; Mean Corpuscular HGB Conc 32.3 g/dL (31.6-35.5); Mean Corpuscular Hemoglobin 27.1 pg (28.0-33.3); Mean Corpuscular Volume 83.8 fL (83.0-100.0); Mean Platelet Volume 11.6 fL (9.4-12.4); Monocytes # 0.6 K/mcL (0.0-1.3); Monocytes % 5.5 %; Neutrophils # 8.3 K/mcL (1.6-8.9); Platelet Count 180 K/mcL (140-400); Red Blood Count 4.14 M/mcL (3.82-4.97); Red Cell Distribution Width 14.5 % (11.5-14.5); Segmented Neutrophils % 70.3 %; White Blood Count 11.7 K/mcL (4.3-11.1)
[2020-01-30 00:45] LABS: Amphetamine Screen,Urine Negative ng/mL (Cutoff=1000); Barbiturate Screen,Urine Negative ng/mL (Cutoff=200); Benzodiazepines Screen,Urine Negative ng/mL (Cutoff=200); Cannabinoid Screen,Urine Negative ng/mL (Cutoff = 50); Cocaine Screen,Urine Negative ng/mL (Cutoff= 300); Opiate Screen,Urine Negative ng/mL (Cutoff=300); Phencyclidine Screen,Urine Negative ng/mL (Cutoff=25)
[2020-01-30] MEDS ORDERED: Famotidine 20 MG/2 ML VIAL IVP ONE (02:16)
[2020-01-30] MEDS ORDERED: EPHEDrine 50 MG/ML VIAL IVP PRN (02:49)
[2020-01-30] MEDS ORDERED: Epidural Premix (fent/bupiv) 110 ML EP SCH (03:00)
[2020-01-30] MEDS ORDERED: Acetaminophen 325 MG TABLET PO PRN (08:33)
[2020-01-30] MEDS ORDERED: Benzocaine/Menthol 56 GM AEROSOL SPRAY TP PRN (08:33)
[2020-01-30] MEDS ORDERED: Sennosides 8.6 MG TABLET PO PRN (08:33)
[2020-01-30] MEDS ORDERED: Lanolin 7 G OINT...G. TP PRN (08:33)
[2020-01-30] MEDS: Prenatal Vit/FA 1 EACH TABLET PO SCH (09:07)
[2020-01-30] MEDS: Ibuprofen 600 MG TABLET PO PRN ×2 (13:46→19:35)
[2020-01-31] MEDS: Ibuprofen 600 MG TABLET PO PRN (04:21)
[2020-01-31 07:46] VITALS: BP 115/73
[2020-01-31] MEDS: Prenatal Vit/FA 1 EACH TABLET PO SCH (08:04)
== END 2020-01-31 11:32 | disposition home or self-care (01) | DRG 807 ==
LOC: 1NENULAB → 1NENUOBS 07:54
PROVIDERS: ADMIT Obstetrics & Gynecology; ATTEND Obstetrics & Gynecology